=== PATIENT | male | born 1970 | race African-American/Black ===

== ENCOUNTER 2016-09-21 14:21 | Observation (INO) ==
[2016-09-21] MEDS ORDERED: MAGNESIUM SULF RIDER 2 GM in PREMIX 1 EACH IV PRN (14:44)
[2016-09-21] MEDS ORDERED: MAGNESIUM SULF RIDER 4 GM in PREMIX 1 EACH IV PRN (14:44)
[2016-09-21 18:09] LABS: Basophils # 0.1 10*3/uL (0.0-0.2); Basophils % 0.5 % (0.0-0.8); Eosinophils # 0.1 10*3/uL (0.0-0.87); Eosinophils % 1.2 % (0.00-10.9); Hematocrit 36.8 VOL% (42.0-52.0); Hemoglobin 12.5 GM/DL (14.0-18.0); Immature Granulocytes % 0.4 %; Immature Granulocytes Absolute 0.04 #; Lymphocytes # 3.1 10*3/uL (1.4-4.0); Lymphocytes % 29.6 % (21.2-54.2); Mean Corpuscular Hemoglobin 30 PG (27-34); Mean Corpuscular Volume 88.9 FL (87-102); Mean Platelet Volume 10.5 FL (9.6-12.0); Monocytes # 0.6 10*3/uL (0.11-0.8); Monocytes % 5.3 % (1.7-12.7); Neutrophils # 6.5 10*3/uL (1.4-7.4); Platelet Count 293 10*3/uL (130-400); Red Blood Count 4.14 10*6/uL (3.8-5.5); Red Cell Distribution Width 11.6 % (9.3-17.3); White Blood Count 10.3 10*3/uL (4.5-13.71)
[2016-09-21 18:32] LABS: Troponin I Only 0.067 NG/ML (0.00-0.045)
[2016-09-21 18:34] LABS: Risk Ratio 3.25; Thyroid Stimulating Hormone 0.722 uIU/ml (0.358-3.74); VLDL CHOLESTEROL 18.2 MG/DL
[2016-09-21 18:53] LABS: Bilirubin,Total 0.5 MG/DL (0.2-1.0); Calcium 9.7 MG/DL (8.5-10.1); Potassium 3.3 MMOL/L (3.5-5.1); Total Protein 7.6 G/DL (6.4-8.3)
[2016-09-21] MEDS ORDERED: hydrALAZINE 20 MG/1 ML VIAL IV PRN (20:08)
--- NOTE | 2016-09-21 20:13 | Cardiology History & Physical ---
Phillip Pickering Rachel, RN, am scribing for, and in the presence of, Barbara Cisneros MD 20:12. Assessment and Plan (1) Elevated troponin Status: Acute Assessment and plan: Patient is currently chest pain free. Troponin of 0.06 noted at outside facility. Serial troponins from this facility pending. EKG and echo also pending. In general, his clinical presentation is not consistent with an acute coronary syndrome. We will plan to do stress test tomorrow if his troponins do not peak. Current Visit: Yes (2) Hypertension Status: Acute Assessment and plan: Home medications have been resumed. Lisinopril/HCTZ held until creatinine reviewed. Coreg 6.25 added, will adjust further as needed. Current Visit: Yes (3) Heart palpitations Status: Acute Assessment and plan: Patient denies palpitations at this time, currently in NSR per tele monitor. EKG , CMP, and TSH pending. We'll initiate beta arpita and monitor his rhythm. He may need outpatient 30 day monitor. Current Visit: Yes (4) Chest pain Status: Acute Assessment and plan: Awaiting results from troponin and EKG. Patient is currently chest pain free. In general his symptoms are atypical of a cardiac chest pain. Current Visit: Yes History of Present Illness Chief complaint: chest pain History of present illness: Mr. Byrd is a 46 year old male who is not routinely followed by cardiology and without known coronary artery disease. He has risk factors significant for hypertension, obesity, sedentary lifestyle, and positive family history (dad from [place]). He denies ever smoking. He was in his usual state of health until three weeks ago when he began having chest pain at work. He describes the pain as chest tightness that was accompanied with diaphoresis, nausea, vomiting, and fatigue. He reports that the chest pain only lasted a 2-5 minutes. Shortly after the chest pain resolved he became very sick to his stomach and suffered from diarrhea and vomiting. He left work that day and went to ER. He reported that his potassium was low and he was very dehydrated. They diagnosed him with the stomach bug and sent him home. He continued to have diarrhea for a couple days later and then resolved. He stated that he did not have another episode until yesterday. He was at work and experienced chest pain after bending down. He described that pain as chest tightness as well. This pain was very similar to the pain he had three weeks ago. It was also associated with nausea, vomiting, diaphoresis, heart palpitations and racing, weakness, nervousness, and lightheadness. He denied having shortness of breath and nothing makes his symptoms worse. He states that he simply had to calm himself down and the symptoms resolve. At that time he went to see local [employer]SE COUNSELOR where he had labs drawn and an EKG done. His EKG was noted to be unremarkable but his troponin was bumped at 0.06. He was told to return the next day to recheck troponin and EKG. The next day troponin and EKG was unchanged, the RESIDENTIAL SUBSTANCE ABUSE COUNSELOR at this time sent him to [facility]. from [facility] then contacted Dr. Cisneros to set up for transfer. Dr. Cisneros accepted the patient as a direct admit and he was transferred to [facility] for further work up of chest pain. Currently he is chest pain free and in no acute distress. He denies shortness of breath, nausea, vomiting, and heart palpitations. He admits that this only seems to happen at work when he is in a stressful environment. He states that he feels extremely nervous during episode. He reports that he has never had an episode at home, however his has noticed heart racing while laying on his chest at times. He denies worsening chest pain and shortness of breath with activity. Troponin was done at outside facility and was noted to be 0.06. Home Medications Medication Instructions Recorded Confirmed Type Lisinopril/Hydrochlorothiazide 1 tablet PO DAILY 09/21/16 09/21/16 History [Lisinopril-Hctz 20-12.5 mg Tab] Potassium Chloride Cap/Tab [K Dur] 20 meq PO BID 09/21/16 09/21/16 History amLODIPine [Norvasc] 10 mg PO DAILY 09/21/16 09/21/16 History Allergies Allergy/AdvReac Type Severity Reaction Status Date / Time Unable to Obtain Allergy Verified 09/21/16 16:40 - Constitutional Constitutional: Present: as per HPI, fatigue, weakness. Absent: chills, fever(s ) - EENT Eyes: Absent: blurry vision, loss of vision Ears: Absent: decreased hearing, tinnitus Nose, mouth and throat: Absent: dysphagia, epistaxis, sore throat - Cardiovascular Cardiovascular: Present: chest pain at rest, diaphoresis, lightheadedness, palpitations. Absent: dyspnea, dyspnea on exertion, edema, radiating jaw, neck or arm pain - Respiratory Respiratory: Absent: cough, dyspnea, dyspnea on exertion, wheezing - Gastrointestinal Gastrointestinal: Present: diarrhea, nausea, vomiting. Absent: hematemesis, melena - Genitourinary Genitourinary: Absent: difficulty urinating, dysuria, hematuria - Musculoskeletal Musculoskeletal: Absent: arthralgias, back pain, muscle weakness - Neurological Neurological: Absent: abnormal gait, abnormal speech, syncope - Psychiatric Psychiatric: Present: anxiety. Absent: depression, memory loss - Endocrine Endocrine: Absent: cold intolerance, heat intolerance - Hematologic/Lymphatic Hematologic/Lymphatic: Absent: easy bleeding, easy bruising Medical,Surgical,& Family Hx - Medical History Cardio: History of: Hypertension Respiratory: Comment Only: Respiratory Problems (SINUS) Gastrointestinal: History of: GERD - Surgical History Neurologic Surgeries: Patient denies: Neurologic Surgery Orthopedic Surgeries: Comment Only: Total Knee Replacement (JULIAN KNEE SURGERY) - Family History Family History: Reports;: Family Diabetes (MOM DAD BROTHER), Family Heart Disease (DAD FROM HEART DISEASE AT AGE 60), Family Hypertension (BROTHER SISTER) - Social History Smoking Status: Never smoker Frequency of Alcohol Use: None Type of Drug Use: None Cardiology Physical Exam - Constitutional Vitals: Vital Signs Temp Pulse Resp BP Pulse Ox 97.8 F 79 18 152/111 97 09/21/16 16:00 09/21/16 16:00 09/21/16 16:00 09/21/16 16:00 09/21/16 16:00 Intake and Output 09/21/16 09/21/16 09/21/16 06:59 14:59 22:59 Other: Weight 236 lb Patient Weight 09/22/16 06:59 Weight 236 lb General appearance: no acute distress, over weight - Head Head exam: Present: normal inspection, normocephalic, atraumatic - Eye Eye exam: Absent: conjunctival injection, periorbital swelling, scleral icterus , laceration to eyelids Pupils: Present: VALERIY. Absent: constricted, dilated, fixed, irregular, unequal - ENT ENT exam: Present: normal exam, normal external ear exam - Neck Neck exam: Present: normal inspection. Absent: lymphadenopathy, meningismus, tenderness - Respiratory Respiratory exam: Present: clear to auscultation bilaterally. Absent: chest wall tenderness, rales, rhonchi, stridor, wheezes - Cardiovascular Cardiovascular exam: Present: regular rate and rhythm. Absent: bradycardia, carotid bruit, gallop, irregular rhythm, JVD, rubs, systolic murmur, tachycardia - GI/Abdominal GI/Abdominal exam: Present: normal bowel sounds, soft. Absent: ascites, distended, firm, guarding, mass - Extremities Exam Extremities exam: Present: normal inspection, normal capillary refill - Back Exam Back exam: Present: normal inspection. Absent: CVA tenderness (L), CVA tenderness (R), muscle spasm, vertebral tenderness - Neurological Exam Neurological exam: Present: alert, oriented X3 - Psychiatric Psychiatric exam: Present: normal affect, normal mood. Absent: agitated, anxious - Skin Skin exam: Present: normal color, warm, dry Result/EKG - Labs CBC & BMP: 09/21/16 17:36 09/21/16 17:36 Lab Results: I have reviewed the past 24 hour labs Labs: Laboratory Results - last 24 hr 09/21/16 09/21/16 09/21/16 17:36 17:36 17:36 WBC 10.3 RBC 4.14 Hgb 12.5 L Hct 36.8 L MCV 88.9 MCH 30 MCHC 34.0 RDW 11.6 Plt Count 293 MPV 10.5 Neut % (Auto) 63.0 Lymph % (Auto) 29.6 [place] % (Auto) 5.3 Eos % (Auto) 1.2 Baso % (Auto) 0.5 Neut # (Auto) 6.5 Lymph # (Auto) 3.1 [place] # (Auto) 0.6 Eos # (Auto) 0.1 Baso # (Auto) 0.1 Immature Gran % 0.4 Nucleated RBC % 0.0 Immature Gran # 0.04 Nucleated RBCs # 0.00 Sodium 143 Potassium 3.3 L Chloride 103 Carbon Dioxide 30 Anion Gap 13.3 BUN 20 H Creatinine 1.10 GFR Calculation 122 BUN/Creatinine Ratio 18.00 Glucose 128 H Calculated Osmolality 289.0 Calcium 9.7 Total Bilirubin 0.50 AST 21 ALT 34 Alkaline Phosphatase 90 Total Creatine Kinase CK-MB (CK-2) Troponin I Total Protein 7.6 Albumin 4.0 Globulin 3.6 H Albumin/Globulin Ratio 1.1 Triglycerides 91 Cholesterol 179 LDL Cholesterol 101.0 VLDL Cholesterol 18.2 HDL Cholesterol 55 Heart Disease Risk Ratio 3.25 TSH 3rd Generation 0.722 09/21/16 17:37 WBC RBC Hgb Hct MCV MCH MCHC RDW Plt Count MPV Neut % (Auto) Lymph % (Auto) [place] % (Auto) Eos % (Auto) Baso % (Auto) Neut # (Auto) Lymph # (Auto) [place] # (Auto) Eos # (Auto) Baso # (Auto) Immature Gran % Nucleated RBC % Immature Gran # Nucleated RBCs # Sodium Potassium Chloride Carbon Dioxide Anion Gap BUN Creatinine GFR Calculation BUN/Creatinine Ratio Glucose Calculated Osmolality Calcium Total Bilirubin AST ALT Alkaline Phosphatase Total Creatine Kinase 424 H CK-MB (CK-2) 3.4 Troponin I 0.067 H Total Protein Albumin Globulin Albumin/Globulin Ratio Triglycerides Cholesterol LDL Cholesterol VLDL Cholesterol HDL Cholesterol Heart Disease Risk Ratio TSH 3rd Generation Quality Measures - VTE Contraindication to Pharmacological VTE Prophylaxis: Already on Theraputic Agent , No Prophylaxis Needed - Stroke Symptom Onset Unknown: No I, Barbara Cisneros MD, personally performed the services described in this documentation, ascribed by Nichole Fisher RN in my presence, and it is both accurate and complete 013 .
[2016-09-21] MEDS: POTASSIUM CHLORIDE 20 MEQ TABLET PO SCH (21:19)
[2016-09-21] MEDS: CARVEDILOL 6.25 MG TABLET PO SCH (21:19)
[2016-09-22 02:13] LABS: Basophils # 0.1 10*3/uL (0.0-0.2); Basophils % 0.5 % (0.0-0.8); Eosinophils # 0.2 10*3/uL (0.0-0.87); Eosinophils % 1.7 % (0.00-10.9); Hematocrit 33.2 VOL% (42.0-52.0); Hemoglobin 11.3 GM/DL (14.0-18.0); Immature Granulocytes % 0.3 %; Immature Granulocytes Absolute 0.03 #; Lymphocytes # 3.4 10*3/uL (1.4-4.0); Lymphocytes % 35.3 % (21.2-54.2); Mean Corpuscular Hemoglobin 30 PG (27-34); Mean Corpuscular Volume 88.5 FL (87-102); Mean Platelet Volume 10.5 FL (9.6-12.0); Monocytes # 0.6 10*3/uL (0.11-0.8); Monocytes % 6.4 % (1.7-12.7); Neutrophils # 5.3 10*3/uL (1.4-7.4); Neutrophils % 55.8 % (38.7-73.9); Platelet Count 255 10*3/uL (130-400); Red Blood Count 3.75 10*6/uL (3.8-5.5); Red Cell Distribution Width 11.8 % (9.3-17.3); White Blood Count 9.5 10*3/uL (4.5-13.71)
[2016-09-22 02:53] LABS: Calcium 8.8 MG/DL (8.5-10.1); Magnesium 1.8 MG/DL (1.8-2.4); Potassium 3.1 MMOL/L (3.5-5.1); Risk Ratio 3.38; VLDL CHOLESTEROL 55.2 MG/DL
[2016-09-22 03:00] LABS: Troponin I Only 0.069 NG/ML (0.00-0.045)
[2016-09-22] MEDS ORDERED: amLODIPine 10 MG TABLET PO SCH (09:00)
[2016-09-22] MEDS ORDERED: POTASSIUM CHLORIDE RIDER 10 MEQ in PREMIX 1 EACH IV PRN ×2 (09:18→10:10)
[2016-09-22] MEDS ORDERED: MAGNESIUM SULF RIDER 2 GM in PREMIX 1 EACH IV ONE (09:19)
--- NOTE | 2016-09-22 09:22 | Cardiology Progress Note ---
<Brianna Wang E - Last Filed: 09/22/16 09:20> Assessment and Plan - Time spent with patient Time spent with patient: Greater than 30 minutes (1) Hypokalemia Status: Acute Assessment and plan: See plan of care above Current Visit: Yes (2) Hypomagnesemia Status: Acute Assessment and plan: See plan of care above Current Visit: Yes (3) Hypertension Status: Chronic Assessment and plan: See plan of care above Current Visit: Yes (4) Elevated troponin Status: Acute Assessment and plan: See plan of care above Current Visit: Yes (5) Heart palpitations Status: Acute Assessment and plan: See plan of care above Current Visit: Yes (6) Chest pain Status: Acute Assessment and plan: See plan of care above Current Visit: Yes Cardiology - PN: Subj Interval history: Mr. Byrd is a 46 year old male who is not routinely followed by cardiology and without known coronary artery disease. He has risk factors significant for hypertension, obesity, sedentary lifestyle, and positive family history (dad from [place]). He denies ever smoking. Patient had complaints of chest pain intermittently over the past several weeks. Yesterday, he was seen in the [place] [facility] and noted to have troponin 0.6. He was subsequently transferred to our facility where he has been housed overnight. Troponins relatively unchanged. No chest pain during the night however he did feel a brief "flutter" at some point during the night. He is NPO for stress testing this morning. ASSESSMENT/PLAN: 1. CHEST PAIN - none since admission 2. ELEVATED TROPONIN - stable overnight at 0.6. NPO for stress testing this morning 3. PALPITATIONS - reported one episode of palpitations during night. I will personally review telemetry but there are no arrythmias noted to be scanned in. I will review. Add TSH to labs if not already obtained. 4. HYPERTENSION - adjust medications accordingly 5. HYPOKALEMIA - potassium remains low. Will replace 6. HYPOMAGNESEMIA - will replace and monitor closely Exam (Progress Note) - Constitutional Vitals: Period Temp Pulse Resp BP Sys/Bran Pulse Ox Last 24 Hr 97.8 F-99.2 F 63-81 18-20 133-152/84-111 91-97 General appearance: normal weight, no acute distress - Head Head exam: Present: normocephalic, atraumatic - Eye Eye exam: Absent: conjunctival injection, nystagmus Pupils: Present: VALERIY, normal accommodation - ENT ENT exam: Present: normal exam, normal external ear exam - Neck Neck exam: Absent: lymphadenopathy, tenderness, thyromegaly - Respiratory Respiratory exam: Present: clear to auscultation bilaterally. Absent: accessory muscle use - Cardiovascular Cardiovascular exam: Absent: bradycardia, irregular rhythm, JVD - GI/Abdominal GI/Abdominal exam: Present: normal bowel sounds. Absent: distended, mass - Extremities Exam Extremities exam: Present: normal capillary refill. Absent: calf tenderness, edema - Back Exam Back exam: Absent: CVA tenderness (L), CVA tenderness (R), muscle spasm - Neurological Exam Neurological exam: Present: alert, oriented X3, normal gait - Psychiatric Psychiatric exam: Present: normal affect, normal mood - Skin Skin exam: Present: warm, dry. Absent: rash Result/EKG - Labs CBC & BMP: 09/22/16 01:49 09/22/16 01:49 Lab Results: I have reviewed the past 24 hour labs Labs: Laboratory Results - last 24 hr 09/21/16 09/21/16 09/21/16 17:36 17:36 17:36 WBC 10.3 RBC 4.14 Hgb 12.5 L Hct 36.8 L MCV 88.9 MCH 30 MCHC 34.0 RDW 11.6 Plt Count 293 MPV 10.5 Neut % (Auto) 63.0 Lymph % (Auto) 29.6 [place] % (Auto) 5.3 Eos % (Auto) 1.2 Baso % (Auto) 0.5 Neut # (Auto) 6.5 Lymph # (Auto) 3.1 [place] # (Auto) 0.6 Eos # (Auto) 0.1 Baso # (Auto) 0.1 Immature Gran % 0.4 Nucleated RBC % 0.0 Immature Gran # 0.04 Nucleated RBCs # 0.00 Sodium 143 Potassium 3.3 L Chloride 103 Carbon Dioxide 30 Anion Gap 13.3 BUN 20 H Creatinine 1.10 GFR Calculation 122 BUN/Creatinine Ratio 18.00 Glucose 128 H Calculated Osmolality 289.0 Calcium 9.7 Magnesium Total Bilirubin 0.50 AST 21 ALT 34 Alkaline Phosphatase 90 Total Creatine Kinase CK-MB (CK-2) Troponin I Total Protein 7.6 Albumin 4.0 Globulin 3.6 H Albumin/Globulin Ratio 1.1 Triglycerides 91 Cholesterol 179 LDL Cholesterol 101.0 VLDL Cholesterol 18.2 HDL Cholesterol 55 Heart Disease Risk Ratio 3.25 TSH 3rd Generation 0.722 09/21/16 09/22/16 09/22/16 17:37 01:49 01:49 WBC 9.5 RBC 3.75 L Hgb 11.3 L Hct 33.2 L MCV 88.5 MCH 30 MCHC 34.0 RDW 11.8 Plt Count 255 MPV 10.5 Neut % (Auto) 55.8 Lymph % (Auto) 35.3 [place] % (Auto) 6.4 Eos % (Auto) 1.7 Baso % (Auto) 0.5 Neut # (Auto) 5.3 Lymph # (Auto) 3.4 [place] # (Auto) 0.6 Eos # (Auto) 0.2 Baso # (Auto) 0.1 Immature Gran % 0.3 Nucleated RBC % 0.0 Immature Gran # 0.03 Nucleated RBCs # 0.00 Sodium Potassium Chloride Carbon Dioxide Anion Gap BUN Creatinine GFR Calculation BUN/Creatinine Ratio Glucose Calculated Osmolality Calcium Magnesium Total Bilirubin AST ALT Alkaline Phosphatase Total Creatine Kinase 424 H 371 H CK-MB (CK-2) 3.4 2.6 Troponin I 0.067 H 0.069 H Total Protein Albumin Globulin Albumin/Globulin Ratio Triglycerides Cholesterol LDL Cholesterol VLDL Cholesterol HDL Cholesterol Heart Disease Risk Ratio [facility] 3rd Generation 09/22/16 01:49 WBC RBC Hgb Hct MCV MCH MCHC RDW Plt Count MPV Neut % (Auto) Lymph % (Auto) [place] % (Auto) Eos % (Auto) Baso % (Auto) Neut # (Auto) Lymph # (Auto) [place] # (Auto) Eos # (Auto) Baso # (Auto) Immature Gran % Nucleated RBC % Immature Gran # Nucleated RBCs # Sodium 143 Potassium 3.1 L Chloride 101 Carbon Dioxide 29 Anion Gap 16.1 H BUN 22 H Creatinine 1.20 GFR Calculation 110 BUN/Creatinine Ratio 18.00 Glucose 233 H Calculated Osmolality 294.0 Calcium 8.8 Magnesium 1.8 Total Bilirubin AST ALT Alkaline Phosphatase Total Creatine Kinase CK-MB (CK-2) Troponin I Total Protein Albumin Globulin Albumin/Globulin Ratio Triglycerides 276 H Cholesterol 162 LDL Cholesterol 93.0 VLDL Cholesterol 55.2 HDL Cholesterol 48 Heart Disease Risk Ratio 3.38 [facility] 3rd Generation - Diagnostic Findings Procedure: Chest x-ray: report reviewed by me - EKG EKG results: interpreted by me EKG shows: sinus rhythm Quality Measures - VTE Contraindication to Pharmacological VTE Prophylaxis: Already on Theraputic Agent , No Prophylaxis Needed - Stroke Symptom Onset Unknown: No <Barbara Cisneros - Last Filed: 09/22/16 10:09> Assessment and Plan (1) Elevated troponin Status: Acute Current Visit: Yes (2) Hypertension Status: Chronic Current Visit: Yes (3) Heart palpitations Status: Acute Current Visit: Yes (4) Chest pain Status: Acute Current Visit: Yes Cardiology - PN: Subj Interval history: I personally interviewed and examined the patient, reviewed the chart and discussed medical decision-making with practitioner Felipe. I have read this note and agree with the findings as documented herein. An ECG was ordered on admission, but has not done her put on the chart for baseline. During stress testing today, the patient developed wide-complex tachycardia with exercise. I have discussed the role, risks and benefits of cardiac catheterization with the patient and he agrees to proceed. I have discussed this case with Dr. Marlow. We have stopped his hydrochlorothiazide and will replace his electrolytes. Exam (Progress Note) - Constitutional Vitals: Period Temp Pulse Resp BP Sys/Bran Pulse Ox Last 24 Hr 97.8 F-99.2 F 63-81 18-20 133-152/84-111 91-97 Result/EKG - Labs CBC & BMP: 09/22/16 01:49 09/22/16 01:49 Labs: Laboratory Results - last 24 hr 09/21/16 09/21/16 09/21/16 17:36 17:36 17:36 WBC 10.3 RBC 4.14 Hgb 12.5 L Hct 36.8 L MCV 88.9 MCH 30 MCHC 34.0 RDW 11.6 Plt Count 293 MPV 10.5 Neut % (Auto) 63.0 Lymph % (Auto) 29.6 [place] % (Auto) 5.3 Eos % (Auto) 1.2 Baso % (Auto) 0.5 Neut # (Auto) 6.5 Lymph # (Auto) 3.1 [place] # (Auto) 0.6 Eos # (Auto) 0.1 Baso # (Auto) 0.1 Immature Gran % 0.4 Nucleated RBC % 0.0 Immature Gran # 0.04 Nucleated RBCs # 0.00 Sodium 143 Potassium 3.3 L Chloride 103 Carbon Dioxide 30 Anion Gap 13.3 BUN 20 H Creatinine 1.10 GFR Calculation 122 BUN/Creatinine Ratio 18.00 Glucose 128 H Calculated Osmolality 289.0 Calcium 9.7 Magnesium Total Bilirubin 0.50 AST 21 ALT 34 Alkaline Phosphatase 90 Total Creatine Kinase CK-MB (CK-2) Troponin I Total Protein 7.6 Albumin 4.0 Globulin 3.6 H Albumin/Globulin Ratio 1.1 Triglycerides 91 Cholesterol 179 LDL Cholesterol 101.0 VLDL Cholesterol 18.2 HDL Cholesterol 55 Heart Disease Risk Ratio 3.25 TSH 3rd Generation 0.722 09/21/16 09/22/16 09/22/16 17:37 01:49 01:49 WBC 9.5 RBC 3.75 L Hgb 11.3 L Hct 33.2 L MCV 88.5 MCH 30 MCHC 34.0 RDW 11.8 Plt Count 255 MPV 10.5 Neut % (Auto) 55.8 Lymph % (Auto) 35.3 [place] % (Auto) 6.4 Eos % (Auto) 1.7 Baso % (Auto) 0.5 Neut # (Auto) 5.3 Lymph # (Auto) 3.4 [place] # (Auto) 0.6 Eos # (Auto) 0.2 Baso # (Auto) 0.1 Immature Gran % 0.3 Nucleated RBC % 0.0 Immature Gran # 0.03 Nucleated RBCs # 0.00 Sodium Potassium Chloride Carbon Dioxide Anion Gap BUN Creatinine GFR Calculation BUN/Creatinine Ratio Glucose Calculated Osmolality Calcium Magnesium Total Bilirubin AST ALT Alkaline Phosphatase Total Creatine Kinase 424 H 371 H CK-MB (CK-2) 3.4 2.6 Troponin I 0.067 H 0.069 H Total Protein Albumin Globulin Albumin/Globulin Ratio Triglycerides Cholesterol LDL Cholesterol VLDL Cholesterol HDL Cholesterol Heart Disease Risk Ratio [facility] 3rd Generation 09/22/16 01:49 WBC RBC Hgb Hct MCV MCH MCHC RDW Plt Count MPV Neut % (Auto) Lymph % (Auto) [place] % (Auto) Eos % (Auto) Baso % (Auto) Neut # (Auto) Lymph # (Auto) [place] # (Auto) Eos # (Auto) Baso # (Auto) Immature Gran % Nucleated RBC % Immature Gran # Nucleated RBCs # Sodium 143 Potassium 3.1 L Chloride 101 Carbon Dioxide 29 Anion Gap 16.1 H BUN 22 H Creatinine 1.20 GFR Calculation 110 BUN/Creatinine Ratio 18.00 Glucose 233 H Calculated Osmolality 294.0 Calcium 8.8 Magnesium 1.8 Total Bilirubin AST ALT Alkaline Phosphatase Total Creatine Kinase CK-MB (CK-2) Troponin I Total Protein Albumin Globulin Albumin/Globulin Ratio Triglycerides 276 H Cholesterol 162 LDL Cholesterol 93.0 VLDL Cholesterol 55.2 HDL Cholesterol 48 Heart Disease Risk Ratio 3.38 TSH 3rd Generation
[2016-09-22] MEDS ORDERED: REGADENOSON 0.4 MG/5 ML SYRINGE IV ONE (09:27)
--- NOTE | 2016-09-22 09:42 | Event Note ---
While attempting GXT portion of stress test, began to experience PVCs, bigeminal , trigeminy and pairs. Subsequently had multiple, prolonged runs of ventirular rhythm which did not respond to valsalva or precordial thump. Patient was minimally lightheaded and denied chest pain. Eventually resolved on its own with rest. Patient completed Lexiscan protocol. Now to nuclear medicine to complete final scan. Dr. Cisneros to read, interpret and advise.
[2016-09-22] MEDS ORDERED: DIAZEPAM 5 MG TABLET PO ONE (10:10)
[2016-09-22] MEDS ORDERED: MAGNESIUM SULF RIDER 2 GM in PREMIX 1 EACH IV PRN (10:10)
[2016-09-22] MEDS ORDERED: diphenhydrAMINE CAP 25 MG CAPSULE PO ONE (10:10)
[2016-09-22 10:53] LABS: PT Patient Result 11.1 SECS; Partial Thromboplastin Time 23.8 SECS (0-40)
--- NOTE | 2016-09-22 10:54 | XRay Report ---
XR chest 2V Indication: Ventricular tachycardia Comparison: None Technique: Frontal and lateral views of the chest Findings: Masslike opacity projects over the heart demonstrated on frontal view only. This could reflect a hiatal hernia but is not confirmed on lateral view. Recommend CT chest for further evaluation, confirmation, and exclusion of neoplasm. Heart size appears within normal limits. No focal consolidation, pleural effusion, or pneumothorax. Osseous and surrounding soft tissue structures demonstrate no acute abnormality. IMPRESSION: No acute cardiopulmonary process demonstrated. Masslike opacity projects over the heart demonstrated on frontal view only. This could reflect a hiatal hernia but is not confirmed on lateral view. Recommend CT chest for further evaluation, confirmation, and exclusion of neoplasm. PROCEDURE INTERPRETED AT [facility] DEPARTMENT OF RADIOLOGY Final Report Signed by: Dr Jaziel Gerard
[2016-09-22] MEDS: CARVEDILOL 6.25 MG TABLET PO SCH ×2 (10:57→20:40)
[2016-09-22] MEDS: SODIUM CHLORIDE 0.45% 1,000 ML IV SCH ×2 (10:59→18:44)
--- NOTE | 2016-09-22 11:10 | EKG Report ---
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
[2016-09-22] MEDS ORDERED: LIDOCAINE 1%/EPI INJ 20 ML VIAL ONE (11:45)
[2016-09-22] MEDS ORDERED: HEPARIN/NACL 0.9% 2 UNITS/ML 1,000 ML IV ONE (11:54)
--- NOTE | 2016-09-22 12:08 | Nuclear Medicine Report ---
LEXISCAN CARDIOLITE DATE: 09/22/2016 REFERRING PHYSICIAN: Barbara Cisneros MD INTERPRETING PHYSICIAN: Barbara Cisneros MD INDICATION: A 46-year-old black male with chest discomfort, presyncope. PROCEDURE: The patient underwent Lexiscan Cardiolite per protocol. 10 mCi of Technetium-99 were in jected for rest imaging. The patient was initially scheduled for an exercise stress test and began exercising on the treadmill. Exercise induced significant rhythm ectopy with wide complexes that ev entually developed into a wide-complex tachycardia that could be consistent with ventricular tachyca rdia. He was converted to Lexiscan at this point and administered Lexiscan 0.4 mg IV followed by 30 mCi of Technetium-99 for stress imaging. SPECT images were obtained in the short axis, horizontal, and vertical long axis with gating. Eject ion fraction is 54%, end-diastolic volume 134 mL, end-systolic volume 62 mL, stroke volume is 73 mL. At rest, there was a moderate extent, [id number] intensity perfusion defect involving the basa l to mid inferior wall. Additionally, there is a moderate extent, nehe-rz-qccbtaon intensity perfus ion defect affecting the basal to mid anterior wall. With stress imaging, there is matched stress t o rest perfusion. IMPRESSION: 1. NORMAL LEFT VENTRICULAR SYSTOLIC FUNCTION. 2. EXERCISE INDUCED WIDE-COMPLEX TACHYCARDIA CONCERNING FOR VENTRICULAR TACHYCARDIA. 3. FIXED INFERIOR WALL AND ANTERIOR WALL PERFUSION DEFECTS. THESE COULD REPRESENT PRIOR MYOCARDIAL INFARCTION WITH SCAR FORMATION OR COULD REPRESENT SEVERE UNDERLYING ISCHEMIA. Procedure performed and interpreted at [facility] Department of Radiology.
[2016-09-22] MEDS ORDERED: VERAPAMIL 5 MG/2 ML VIAL ONE (12:19)
[2016-09-22] MEDS ORDERED: NITROGLYCERIN DRIP 50 MG/250 ML BOTTLE IV ONE (12:19)
[2016-09-22] MEDS ORDERED: LIDOCAINE 1% 20 ML VIAL ONE (12:19)
[2016-09-22] MEDS ORDERED: MIDAZOLAM 2 MG/2 ML VIAL ONE (12:19)
[2016-09-22] MEDS ORDERED: fentaNYL 100 MCG/2 ML VIAL ONE (12:19)
--- NOTE | 2016-09-22 12:27 | Electrophysiology Consultation ---
History of Present Illness - Data of Consult Patient: new to practice Consult date: 09/22/16 Requesting Physician: Barbara Cisneros - Consult Narrative Reason for consult: VT History of present illness: Mr. Byrd is a 46 year old BM, was seen by Dr. Cisneros. EP consult was requested for ventricular tachycardia. He noticed palpitations several weeks ago, with moderate exertion. They lasted for several minutes. 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 Yesterday, he had symptoms again , which did not stop for a while and he came to an emergency room. Troponins were borderline elevated and he was transferred to [facility]. EKG shows small inferior Q waves, normal intervals, telemetry showed sinus rhythm, with occasional uniform bigeminy. This was mildly symptomatic. A stress test was performed, perfusion results pending, he developed bigemin unifocal PVCs, then ventricle tachycardia, suggestive of RVOT origin. He felt palpitations, with some mild chest discomfort. He never had prior syncope. His dad from what sounds like a heart attack or arrhythmia, he underwent cardiac catheterization, stent implantation, and then suddenly after he was discharged home. He was in the 60s. There is no family history of recurrent syncope or early onset sudden cardiac . He denies any leg swelling. He snores heavily, but does not have to take daytime naps. An echo was ordered. He has a history of hypertension, which was controlled with medications. Potassium was borderline low. CC: Barbara Cisneros, - Home Medications and Allergies Home Medications: Home Medications Medication Instructions Recorded Confirmed Type Lisinopril/Hydrochlorothiazide 1 tablet PO DAILY 09/21/16 09/21/16 History [Lisinopril-Hctz 20-12.5 mg Tab] Potassium Chloride Cap/Tab [K Dur] 20 meq PO BID 09/21/16 09/21/16 History amLODIPine [Norvasc] 10 mg PO DAILY 09/21/16 09/21/16 History Allergies/Adverse Reactions: Allergies Allergy/AdvReac Type Severity Reaction Status Date / Time Unable to Obtain Allergy Verified 09/21/16 16:40 Medical,Surgical,& Family Hx - Medical History Cardio: History of: Hypertension Neurology: History of: Cerebrovascular Accident (20 YRS AGO) Respiratory: Comment Only: Respiratory Problems (SINUS) Gastrointestinal: History of: GERD - Surgical History Neurologic Surgeries: Patient denies: Neurologic Surgery Orthopedic Surgeries: Comment Only: Total Knee Replacement (JULIAN KNEE SURGERY) - Family History Family History: Reports;: Family Diabetes (MOM DAD BROTHER), Family Heart Disease (DAD FROM HEART DISEASE AT AGE 60), Family Hypertension (BROTHER SISTER) - Social History Smoking Status: Current every day smoker Frequency of Alcohol Use: None Type of Drug Use: None 12 point system: reviewed and no additional remarkable complaints except as stated Exam - Constitutional Vitals: Period Temp Pulse Resp BP Sys/Bran Pulse Ox Last 24 Hr 97.8 F-99.2 F 63-81 18-20 133-152/84-111 91-97 General appearance: normal weight - Head Head exam: Present: normal inspection - Eye Eye exam: Absent: conjunctival injection Pupils: Absent: dilated - ENT ENT exam: Present: normal external ear exam - Neck Neck exam: Present: normal inspection - Respiratory Respiratory exam: Present: clear to auscultation bilaterally - Cardiovascular Cardiovascular exam: Present: regular rate and rhythm - GI/Abdominal GI/Abdominal exam: Present: normal bowel sounds - Extremities Exam Extremities exam: Present: normal inspection, normal capillary refill. Absent: edema - Back Exam Back exam: Present: normal inspection - Neurological Exam Neurological exam: Present: alert, oriented X3 - Psychiatric Psychiatric exam: Present: normal affect, normal mood - Skin Skin exam: Present: normal color, warm. Absent: cyanosis Results - Labs CBC & BMP: 09/22/16 01:49 09/22/16 01:49 Lab Results: I have reviewed the past 24 hour labs Assessment and Plan (1) Ventricular tachycardia Status: Acute Assessment and plan: 46-year-old BM, with symptomatic ventricular tachycardia, suggestive of RVOT origin. History of hypertension. -Follow-up results of cardiac catheterization, echo. -Recommend to switch amlodipine to verapamil sustained release for the RVOT VT -If he has frequent recurrence of the arrhythmia, EPS/ablation may be pursued. The symptoms are relatively recent onset. Need to r/o symptomatic CAD before ablation. The VT morphology is suggestive of RVOT origin. -Please consider consult for sleep eval Current Visit: Yes (2) Elevated troponin Status: Acute Current Visit: Yes (3) Heart palpitations Status: Acute Current Visit: Yes (4) Chest pain Status: Acute Current Visit: Yes (5) Hypokalemia Status: Acute Current Visit: Yes Quality Measures - VTE Contraindication to Pharmacological VTE Prophylaxis: Already on Theraputic Agent , No Prophylaxis Needed - Stroke Symptom Onset Unknown: No
--- NOTE | 2016-09-22 12:43 | History and Physical Update ---
Sedation H&P Update - History and Physical H&P was reviewed, the patient examined and there: are no changes in the patients condition since last H&P was completed. - Physical Exam Mental Status: alert and oriented Heart: regular rate and rhythm Lung: clear to auscultation Abdomen: within normal limits Vitals: within normal limits - Sedation Plan for Sedation: moderate Patient Consent: Procedure disscussed with patient and patinet has consented., Risks and benefits were discussed with patient,including infection,, bleeding, injury to surrounding structures, seizure, temporary nerve, Patient understands and accepts potential risks/benefits and agrees to, proceed. ASA Class: III Airway Assessment: Class III: Soft palate, base of uvula visible
--- NOTE | 2016-09-22 13:20 | Cardiac Catheterization ---
Date of Procedure:: 09/22/16 Pre-op Diagnosis: Exercise-induced ventricular tachycardia Post-op diagnosis: same Procedure: Procedures performed: Left heart catheterization Coronary arteriography Left ventriculography [Right] femoral sheath angiography Mynx closure femoral arteriotomy site After obtaining informed consent the patient was brought to the catheterization lab where the [right] groin and wrist was prepped and draped in the usual sterile manner. We attempted access from the right radial and were unable to gain access from that area and at that point we switched to right femoral approach. After intravenous sedation and local anesthesia a needle stick was made to the right femoral artery and a [6 Yoruba sheath] was positioned without difficulty. A left heart catheterization was undertaken using first a Priya left diagnostic catheter. The catheter was advanced under fluoroscopy over a guidewire and positioned with its tip in the ostium of the left main coronary artery. Multiple angiograms were obtained of the left coronary artery in multiple views. After adequate angiogram to left coronary obtain this catheter was withdrawn and an AMRM right coronary catheter was advanced over a guidewire under fluoroscopic control where angiography of the right coronary artery was undertaken in multiple views. After adequate angiograms of the right coronary artery were obtained this catheter was withdrawn. A pigtail ventriculographic catheter was advanced over a guidewire under fluoroscopic control to the ascending aorta where it was advanced across the aortic valve and intraventricular hemodynamics were measured. A ventriculogram was obtained in the VELEZ projection and afterward a pullback was obtained from the ventricle to the aorta under hemodynamic monitoring and removed. At this point the patient underwent right femoral sheath angiography which demonstrated anatomy appropriate for Mynx closure. This was performed without difficulty and good hemostasis was obtained. The patient then was transferred back to the guido having suffered no significant immediate complications. The patient's right hand was neurovascularly intact. Hemodynamics: Please see the accompanying data sheet Coronary arteriography: Left coronary artery: The left main coronary artery is well-developed and free of significant obstructing lesions. The circumflex coronary is a large nondominant vessel with possesses no significant lesions to its course. The branches of the circumflex likewise are free of significant obstructing lesions. The left anterior descending coronary artery is a large vessel that extends around the apex of the ventricle. The possesses no significant lesions throughout its course. There is a proximal diagonal branch which is a large and free of significant obstructing lesions. The LAD and its remaining branches are free of significant obstructing lesions. Right coronary artery: The right coronary artery is large vessel that is dominant and is free of significant obstructing lesions. The PDA and posterolateral branches likewise are free of significant obstructing lesions. Left ventriculography: After injection of contrast left ventricle is noted normal size with normal contractility. Mitral and aortic structures are noted to be free of significant abnormality by ventriculography. Right femoral sheath angiography: After injection of contrast in the right femoral arterial sheath it is noted be of normal caliber and enters above the bifurcation. The distal iliac, common femoral and bifurcation appear to be free of significant obstructing lesions based on this limited angiographic study. Conclusions: Angiographically no evidence of significant fixed coronary obstruction. Normal left ventricular size and function. Normal end-diastolic pressures at rest Mynx closure right femoral arteriotomy site Discussion recommendations: Patient presents with exercise-induced ventricular tachycardia. He has angiographically normal coronary arteries and normal LV function and other etiologies of the ventricular tachycardia will be pursued. Anesthesia: moderate conscious sedation Surgeon / Physician: Glynn Marlow Estimated blood loss: minimal Specimens: none sent Condition: stable Disposition: floor - Medications / Follow-up
[2016-09-22] MEDS: POTASSIUM CHLORIDE 20 MEQ TABLET PO SCH ×2 (16:22→20:40)
[2016-09-22 19:21] LABS: Troponin I Only 0.082 NG/ML (0.00-0.045)
--- NOTE | 2016-09-22 21:22 | ECHO Report ---
Chandra Byrd 09/22/2016 Exam Date: 08:25 Referring Physician: Chrissy Correa Technologist: ADRIAN Age: 46 Ht (in): Wt (lb): MExam Location: [facility] Gender: Echo [id number]: Chest pain, unspecified, Essential Indications: hypertension, Palpitations, Elevated troponin BP: / HR: SinusRhythm: FairTechnical Quality: IMPRESSIONS Normal LV systolic function, ejection fraction 60%. Grade 1/4 diastolic dysfunction (impaired relaxation). Moderate concentric left ventricular hypertrophy. Moderate left atrial enlargement. Trace to mild mitral regurgitation and tricuspid regurgitation. Trace pulmonic regurgitation. Mild pulmonary hypertension with pulmonary artery pressure estimated at 44 mmHg. MEASUREMENTS (Male / Female) Normal Values 2D ECHO LV Diastolic Diameter PLAX 4.6 cm 4.2 - 5.9 / 3.9 - 5.3 cm LV Systolic Diameter PLAX 2.3 cm LV Fractional Shortening PLAX 50.8 % IVS Diastolic Thickness 1.9 cm 0.6 - 1.0 / 0.6 - 0.9 cm LVPW Diastolic Thickness 1.7 cm 0.6 - 1.0 / 0.6 - 0.9 cm RV Internal Dim ED PLAX 2.9 cm Aortic Root Diameter 3.5 cm LA Systolic Diameter LX 5.3 cm 3.0 - 4.0 / 2.7 - 3.8 cm DOPPLER TR Peak Velocity 290.0 cm/s TR Peak Gradient 33.6 mmHg FINDINGS Left Ventricle Normal left ventricular cavity size. Moderate left ventricular hypertrophy. Left ventricular ejection fraction is estimated at 60 %. Right Ventricle The right ventricle is normal in size and function. Right Atrium The right atrium is normal size. Left Atrium Moderately increased left atrial size. Mitral Valve Morphologically normal mitral valve. Trace to mild mitral valve regurgitation. Aortic Valve Morphologically normal aortic valve without significant sclerosis or stenosis. There is no aortic regurgitation. Tricuspid Valve Morphologically normal tricuspid valve. Trace to mild tricuspid valve regurgitation. Tricuspid regurgitation velocities suggest a PAP of 44 mmHg. Pulmonic Valve Morphologically normal pulmonic valve. Trace pulmonary valve regurgitation. Pericardium Normal pericardium without effusion. Aorta Normal ascending aorta dimension. Barbara Cisneros MD (Electronically Signed) 22 September 2016 Final Date: 21:21
[2016-09-23] MEDS: SODIUM CHLORIDE 0.45% 1,000 ML IV SCH (01:30)
[2016-09-23 05:38] LABS: Calcium 8.7 MG/DL (8.5-10.1); Osmolality,Calculated 282.4 MOS/KG (273-304); Potassium 3.8 MMOL/L (3.5-5.1)
[2016-09-23 06:45] LABS: Basophils # 0.1 10*3/uL (0.0-0.2); Basophils % 0.5 % (0.0-0.8); Eosinophils # 0.1 10*3/uL (0.0-0.87); Eosinophils % 1.4 % (0.00-10.9); Hematocrit 32.7 VOL% (42.0-52.0); Immature Granulocytes % 0.2 %; Immature Granulocytes Absolute 0.02 #; Lymphocytes # 2.3 10*3/uL (1.4-4.0); Lymphocytes % 22.5 % (21.2-54.2); Mean Corpuscular HGB Conc 33.6 GM/DL (32-36); Mean Corpuscular Hemoglobin 30 PG (27-34); Mean Corpuscular Volume 88.9 FL (87-102); Mean Platelet Volume 10.1 FL (9.6-12.0); Monocytes # 0.6 10*3/uL (0.11-0.8); Neutrophils # 7.1 10*3/uL (1.4-7.4); Neutrophils % 69.4 % (38.7-73.9); Platelet Count 252 10*3/uL (130-400); Red Blood Count 3.68 10*6/uL (3.8-5.5); Red Cell Distribution Width 11.7 % (9.3-17.3); White Blood Count 10.2 10*3/uL (4.5-13.71)
--- NOTE | 2016-09-23 08:18 | Electrophysiology Progress Not ---
Assessment and Plan (1) Ventricular tachycardia Status: Acute Assessment and plan: 46-year-old BM, with symptomatic ventricular tachycardia, suggestive of RVOT origin. History of hypertension. -Switched to amlodipine to verapamil. Ambulate. If he does not have sustained VT, or frequent, symptomatic ectopy, he may be able to go home today, resume normal activities. If he remains symptomatic from the arrhythmia, despite current medical regimen, EP study/ablation is an option. -Consider sleep eval for ELIZABETH symptoms -Follow-up in 4 weeks with EP Current Visit: Yes (2) Elevated troponin Status: Acute Current Visit: Yes (3) Heart palpitations Status: Acute Current Visit: Yes (4) Chest pain Status: Acute Current Visit: Yes (5) Hypokalemia Status: Acute Current Visit: Yes Electrophysiology Subjective Interval history: Cardiac showed no significant CAD. Echo showed normal systolic function, no significant valvular disease or R CMP. Telemetry: Occasional uniform PVCs, he is feeling fine. Exam - Constitutional Vitals: Period Temp Pulse Resp BP Sys/Bran Pulse Ox Last 24 Hr 97.1 F-98.8 F 64-85 16-20 128-150/72-98 94-96 General appearance: over weight - Head Head exam: Present: normal inspection - Eye Eye exam: Absent: conjunctival injection Pupils: Absent: dilated - ENT ENT exam: Present: normal external ear exam - Neck Neck exam: Present: normal inspection - Respiratory Respiratory exam: Present: clear to auscultation bilaterally - Cardiovascular Cardiovascular exam: Present: regular rate and rhythm - GI/Abdominal GI/Abdominal exam: Present: normal bowel sounds - Extremities Exam Extremities exam: Present: normal inspection, normal capillary refill. Absent: edema - Back Exam Back exam: Present: normal inspection - Neurological Exam Neurological exam: Present: alert, oriented X3 - Psychiatric Psychiatric exam: Present: normal affect, normal mood - Skin Skin exam: Present: normal color, warm. Absent: cyanosis Results - Labs CBC & BMP: 09/23/16 06:39 09/23/16 04:37 Lab Results: I have reviewed the past 24 hour labs Quality Measures - VTE Contraindication to Pharmacological VTE Prophylaxis: Already on Theraputic Agent , No Prophylaxis Needed - Stroke Symptom Onset Unknown: No Specialty Discharge - Follow Up or Referrals
[2016-09-23] MEDS ORDERED: VERAPAMIL SR 180 MG TABLET PO SCH (09:00)
[2016-09-23] MEDS: CARVEDILOL 6.25 MG TABLET PO SCH (09:41)
[2016-09-23] MEDS: POTASSIUM CHLORIDE 20 MEQ TABLET PO SCH (09:41)
[2016-09-23 12:31] VITALS: BP 125/88
--- NOTE | 2016-09-23 13:56 | CT Report ---
CT chest w con Indication: Possible mass on chest x-ray. CT CHEST WITH CONTRAST DLP: 598 mGy*cm Comparison: None Technique: Axial CT images of the chest were obtained after the IV administration of Omnipaque 350, 100 cc. Findings: In the lower mediastinum, there is a 88 x 53 mm mass, probably a large hiatal hernia but the esophagus appears to be thickwalled through this region without significant luminal gas present, and endoscopic evaluation is necessary. Within the esophageal lumen, just above this area of density, there is a 13 x 9 mm peripherally dense, centrally hypodense object that may be within the lumen of the esophagus or an esophageal wall. No mediastinal lymphadenopathy. Aorta slightly elongated but otherwise intact. Normal heart size. Mild dependent atelectasis of the lungs noted. Calcified granuloma right lung base is present. Lungs are otherwise clear. Pleural spaces are clear. Limited views of the upper abdomen are within normal limits. No destructive bone lesions. Impression: 1. 88 x 54 mm masslike density in the lower posterior mediastinum is likely primarily a large hiatal hernia, but the esophagus appears to be thickwalled to the region and there is very little intraluminal gas present the region. Superior to this is a 13 x 9 mm peripherally dense, centrally hypodense object that may be within the lumen of the esophagus or the esophageal wall. Because of this, EGD is recommended, particularly to exclude a distal esophageal mass. 2. Right basilar calcified granuloma. PROCEDURE INTERPRETED AT [facility] DEPARTMENT OF RADIOLOGY Final Report Signed by: Nitish Lindo M.D.
--- NOTE | 2016-09-23 14:23 | Discharge Summary ---
Phillip Pickering Rachel, RN, am scribing for, and in the presence of, Barbara Cisneros MD 14:20. Hospital Course - Hospital Course Hospital Course: Mr. Byrd is a 46 year old male who is not routinely followed by cardiology and without known coronary artery disease. He was a direct admit to [facility] from [facility] for further evaluation of chest pain, nausea and palpitations. He had a mildly elevated troponin. While at [place] he underwent a stress test. While on treadmill patient began to experience PVCs, bigeminal, trigeminy and pairs. Subsequently had multiple, prolonged runs of ventirular tachycardia which did not respond to valsalva or precordial thump. This evenually resolved on its own with rest. Morphology was consistent with an RVOT ventricular tachycardia. Patient was taken later that day for heart cath to definitely rule out underlying CAD. Left heart cath demonstrated no evidence of significant fixed coronary obstruction and normal LV size and function. He was closed with a mynx device and has had no complications post op. Dr. Bishop was then consulted to further evaluate arrhythmia. He changed patient from Norvasc to Verapamil. Patient has done well with this medication and has had improvement of his ventricular irritability without any further sustained arrhythmia. Patient will be evaluated out patient for possible sleep apnea by Dr. Arreola. He will also wear a 30 day event monitor and follow up with Dr. Bishop in one month. He also had an echo this admit which revealed normal LV systolic function and an EF of 60%, grade 1/4 diastolic dysfunction, moderate concentric LVH, trace to mild MR and TR, trace pulmonic regurgitation, moderate left atrial enlargment , and an estimated PAP pressure of 44. Chest xray demonstrated masslike opacity projects over the heart, which could reflect hiatal hernia or neoplasm. CT chest described the mass is suspected of being related to the esophagus, or possibly from a hiatal hernia. He is going to be referred to see gastroenterology on an outpatient basis. Upon admission, the patient had hypokalemia, and had also recently been treated for hypokalemia a few weeks prior. For this reason, we discontinued his hydrochlorothiazide and will follow up on his potassium as an outpatient. His right groin is stable today and without bleeding and bruit. PT and DP pulses are 2+ bilaterally. He is without complaints today. Denies chest pain, shortness of breath, palpitations, and lightheadedness. He has been ambulating around the room without symptoms. His creatinine is stable today at 1.0. - Time spent with patient Time with patient DS: Greater than 30 minutes Diagnosis - Discharge Diagnosis (1) Elevated troponin Status: Acute (2) Hypertension Status: Chronic (3) Heart palpitations Status: Resolved (4) Chest pain Status: Resolved (5) Ventricular tachycardia Status: Resolved Specialty Discharge - Follow Up or Referrals Follow up with: Huey Bishop MD [Physician] - 1 Month Barbara Cisneros MD [Physician] - 2 Weeks (Appointment to see me in 2 weeks. Schedule patient for BMP only in 1 week. ) Samantha Arreola MD [Physician] - 1 Week (Please get patient an appointment with Dr. Arreola for an out patient sleep study. ) Discharge Plan - Discharge Data Disposition: Disch To Home/Self Care Condition at Discharge: Stable Discharge Diet: heart healthy Activity: no lifting Hygiene: may shower Weight Bearing at Discharge: weight bear as tolerated Driving: other (for one day) Contact your physician if you experience:: fever over 101, Difficulty voiding, Redness or swelling, Nausea/Vomiting, Shortness of breath, Bleeding, pain uncontrolled by pain medications - Discharge Medications New Potassium Chloride Cap/Tab [K Dur] 20 meq PO DAILY #30 tablet Verapamil Sr Tab [Calan Sr Tab] 240 mg PO DAILY #30 tablet Discontinued Potassium Chloride Cap/Tab [K Dur] 20 meq PO BID Lisinopril/Hydrochlorothiazide [Lisinopril-Hctz 20-12.5 mg Tab] 1 tablet PO DAILY amLODIPine [Norvasc] 10 mg PO DAILY - Follow Up or Referral Follow Up: Huey Bishop MD [Physician] - 1 Month Barbara Cisneros MD [Physician] - 2 Weeks (Appointment to see me in 2 weeks. Schedule patient for BMP only in 1 week. ) Samantha Arreola MD [Physician] - 1 Week (Please get patient an appointment with Dr. Arreola for an out patient sleep study. ) Zaki Prather [Other] - 1 Week (Pt with abnormal finding on Chest CT concerning for esophageal mass.) - Forms/Instructions Instructions: Coronary Artery Disease (GEN), Heart Healthy Diet (GEN) Exam - Constitutional Vitals: Period Temp Pulse Resp BP Sys/Bran Pulse Ox Last 24 Hr 97.1 F-98.8 F 64-85 16-20 128-150/72-98 93-96 General appearance: no acute distress, over weight - Head Head exam: Present: normal inspection, normocephalic, atraumatic - Eye Pupils: Present: VALERIY. Absent: constricted, dilated, fixed, irregular, unequal - Neck Neck exam: Present: normal inspection. Absent: lymphadenopathy, meningismus, tenderness, thyromegaly - Respiratory Respiratory exam: Present: clear to auscultation bilaterally. Absent: accessory muscle use, chest wall tenderness, rales, rhonchi, stridor, wheezes - Cardiovascular Cardiovascular exam: Present: regular rate and rhythm. Absent: diastolic murmur , gallop, irregular rhythm, JVD, systolic murmur, tachycardia - GI/Abdominal GI/Abdominal exam: Present: normal bowel sounds, soft. Absent: ascites, distended, firm, mass, tenderness - Extremities Exam Extremities exam: Present: normal inspection, normal capillary refill. Absent: calf tenderness, edema - Back Exam Back exam: Present: normal inspection. Absent: vertebral tenderness - Neurological Exam Neurological exam: Present: alert, oriented X3, normal gait - Psychiatric Psychiatric exam: Present: normal affect, normal mood. Absent: agitated, anxious, depressed - Skin Skin exam: Present: normal color, warm, dry Discharge Results Procedures and tests throughout hospitalization: Pending Orders 09/24/16 04:00 Basic Metabolic Panel w/Mg IN AM Comp Blood Count Auto Diff IN AM Labs on day of discharge: Labs from last 24 hours 09/23/16 09/23/16 09/22/16 06:39 04:37 18:25 WBC 10.2 RBC 3.68 L Hgb 11.0 L Hct 32.7 L MCV 88.9 MCH 30 MCHC 33.6 RDW 11.7 Plt Count 252 MPV 10.1 Neut % (Auto) 69.4 Lymph % (Auto) 22.5 Baldwin % (Auto) 6.0 Eos % (Auto) 1.4 Baso % (Auto) 0.5 Neut # (Auto) 7.1 Lymph # (Auto) 2.3 Baldwin # (Auto) 0.6 Eos # (Auto) 0.1 Baso # (Auto) 0.1 Immature Gran % 0.2 Nucleated RBC % 0.0 Immature Gran # 0.02 Nucleated RBCs # 0.00 INR PT Patient/Control Mix Circ Anticoag PTT Sodium 140 Potassium 3.8 Chloride 105 Carbon Dioxide 24 Anion Gap 14.8 BUN 16 Creatinine 1.00 GFR Calculation 127 BUN/Creatinine Ratio 16.00 Glucose 157 H Calculated Osmolality 282.4 Calcium 8.7 Magnesium 2.0 Total Creatine Kinase 323 H CK-MB (CK-2) 2.6 Troponin I 0.082 H 09/22/16 09/22/16 10:30 10:04 WBC RBC Hgb Hct MCV MCH MCHC RDW Plt Count MPV Neut % (Auto) Lymph % (Auto) Baldwin % (Auto) Eos % (Auto) Baso % (Auto) Neut # (Auto) Lymph # (Auto) Baldwin # (Auto) Eos # (Auto) Baso # (Auto) Immature Gran % Nucleated RBC % Immature Gran # Nucleated RBCs # INR 1.0 PT Patient/Control Mix 11.1 Circ Anticoag PTT 23.8 Sodium Potassium Chloride Carbon Dioxide Anion Gap BUN Creatinine GFR Calculation BUN/Creatinine Ratio Glucose Calculated Osmolality Calcium Magnesium Total Creatine Kinase 372 H CK-MB (CK-2) 3.0 Troponin I 0.080 H - Imaging and Cardiology Cardiology Procedure: report reviewed by me Procedure: Chest x-ray: report reviewed by me, CT - chest: report reviewed by me DS: Provider Consults: 09/21/16 16:41 Consult to Pharmacy [CONS] Routine Reason for Pharmacy Consult: Adjust Meds Renal Funct 09/22/16 13:21 Consult to Cardiac Rehabilitation [CONS] Routine Reason for Cardiac Rehabilitation: Risk Factor Modification Expected date of discharge: 09/23/16 Blayne Pickering Jennifer, MD, personally performed the services described in this documentation, ascribed by Nichole Fisher RN in my presence, and it is both accurate and complete [id number] .
== END 2016-09-23 15:16 | disposition home or self-care (01) ==
LOC: N.TELES
PROVIDERS: ADMIT Internal Medicine Cardiovascular Disease; ATTEND Internal Medicine Cardiovascular Disease
PROC: CLCCHCL (ICD-10-PCS; 2016-09-22 15:15)

== ENCOUNTER 2021-06-16 17:21 | Observation (INO) ==
[2021-06-16] MEDS ORDERED: ONDANSETRON 4 MG/2 ML VIAL IV PRN (17:52)
[2021-06-16] MEDS ORDERED: ACETAMINOPHEN 325 MG TABLET PO PRN (17:52)
[2021-06-16] MEDS ORDERED: MAGNESIUM SULF RIDER 2 GM/50 ML PREMIX IV PRN (17:52)
[2021-06-16] MEDS ORDERED: MAGNESIUM SULF RIDER 4 GM/100 ML PREMIX IV PRN (17:52)
[2021-06-16] MEDS ORDERED: POTASSIUM CHLORIDE 20 MEQ TABLET PO ONE (18:03)
[2021-06-16 18:29] LABS: Basophils # 0.1 10*3/uL (0.0-0.2); Basophils % 0.6 % (0.0-0.8); Eosinophils # 0.1 10*3/uL (0.0-0.87); Eosinophils % 1.3 % (0.00-10.9); Hematocrit 39.1 VOL% (42.0-52.0); Hemoglobin 12.9 GM/DL (14.0-18.0); Immature Granulocytes % 0.3 %; Immature Granulocytes Absolute 0.03 #; Lymphocytes # 2.8 10*3/uL (1.4-4.0); Lymphocytes % 27.3 % (21.2-54.2); Mean Corpuscular Volume 90.1 FL (87-102); Mean Platelet Volume 10.6 FL (9.6-12.0); Monocytes % 6.6 % (1.7-12.7); Neutrophils % 63.9 % (38.7-73.9); Platelet Count 281 T/CUMM (130-400); Red Blood Count 4.34 MC/CUMM (3.8-5.5); Red Cell Distribution Width 12.4 % (9.3-17.3); White Blood Count 10.3 T/CUMM (4-12)
[2021-06-16 18:50] LABS: Albumin 4.4 G/DL (3.4-5.0); Bilirubin,Total 0.5 MG/DL (0.20-1.00); Calcium 9.8 MG/DL (8.5-10.1); Osmolality,Calculated 281.1 MOS/KG (273-304); Potassium 3.4 MMOL/L (3.5-5.1)
[2021-06-16] MEDS ORDERED: hydrALAZINE 20 MG/1 ML VIAL IV PRN (20:27)
[2021-06-16] MEDS: VERAPAMIL SR 240 MG TABLET PO SCH (20:41)
[2021-06-16] MEDS: ASPIRIN EC 81 MG TABLET PO SCH (20:42)
[2021-06-16] MEDS ORDERED: ATORVASTATIN 80 MG TABLET PO SCH (21:00)
[2021-06-17 05:22] LABS: Basophils # 0.1 10*3/uL (0.0-0.2); Basophils % 0.6 % (0.0-0.8); Eosinophils # 0.2 10*3/uL (0.0-0.87); Eosinophils % 1.7 % (0.00-10.9); Hematocrit 35.9 VOL% (42.0-52.0); Hemoglobin 12.1 GM/DL (14.0-18.0); Immature Granulocytes % 0.4 %; Immature Granulocytes Absolute 0.04 #; Lymphocytes % 32.1 % (21.2-54.2); Mean Corpuscular HGB Conc 33.7 GM/DL (32-36); Mean Corpuscular Volume 89.5 FL (87-102); Monocytes % 8.2 % (1.7-12.7); Platelet Count 246 T/CUMM (130-400); Red Blood Count 4.01 MC/CUMM (3.8-5.5); Red Cell Distribution Width 12.2 % (9.3-17.3); White Blood Count 9.3 T/CUMM (4-12)
[2021-06-17 05:44] LABS: Calcium 9.3 MG/DL (8.5-10.1); Osmolality,Calculated 284.5 MOS/KG (273-304); Potassium 3.1 MMOL/L (3.5-5.1); Risk Ratio 2.51; Thyroid Stimulating Hormone 1.2 uIU/ml (0.358-3.74); VLDL Cholesterol 15.4 MG/DL
[2021-06-17] MEDS ORDERED: glipiZIDE 10 MG TABLET PO SCH (07:30)
[2021-06-17] MEDS ORDERED: POTASSIUM CHLORIDE 20 MEQ TABLET PO ONE (08:07)
[2021-06-17] MEDS ORDERED: POTASSIUM CHLORIDE 10 MEQ TABLET PO SCH (09:00)
[2021-06-17] MEDS ORDERED: MAGNESIUM OXIDE 400 MG TABLET PO SCH (09:00)
[2021-06-17] MEDS ORDERED: VALSARTAN 160 MG TABLET PO SCH (09:00)
[2021-06-17] MEDS ORDERED: DAPAGLIFLOZIN 5 MG TABLET PO SCH (09:00)
[2021-06-17] MEDS: VERAPAMIL SR 240 MG TABLET PO SCH (09:39)
[2021-06-17] MEDS: ASPIRIN EC 81 MG TABLET PO SCH (09:39)
[2021-06-17 11:45] VITALS: BP 142/66
== END 2021-06-17 14:55 | disposition home or self-care (01) ==
LOC: N.TELEN
PROVIDERS: ADMIT Internal Medicine Cardiovascular Disease; ATTEND Internal Medicine Cardiovascular Disease